=== PATIENT | female | born 1985 | race Caucasian/White ===

== ENCOUNTER → 2017-07-18 | Outpatient (CLI) | payer OTHER ==
--- NOTE | 2017-07-19 06:59 | US ---
EXAMINATION TYPE: US pelvic complete DATE OF EXAM: 07/18/2017 COMPARISON: NONE CLINICAL HISTORY: R19.09 INTRA ABD AND PELVIC SWELLING. 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 Transabdominal sonographic images of the pelvis were acquired. Transvaginal sonographi c images were medically necessary to better assess the following anatomy: ovaries Date of LMP: 06/26/2017 EXAM MEASUREMENTS: Uterus: 7.8 x 3.9 x 4.8 cm Endometrial Stripe: 0.8 cm Right Ovary: not seen Left Ovary: 2.4 x 1.7 x 1.8 cm 1. Uterus: anteverted, heterogeneous 2. Endometrium: wnl for patient's LMP 3. Right Ovary: not seen due to overlying bowel gas 4. Left Ovary: appears wnl at this time 5. Bilateral Adnexa: wnl 6. Posterior cul-de-sac: wnl Left ovary appears within normal limits on current study. Right ovary is not clearly identified. IMPRESSION: As above. If clinical concern for ovarian mass or neoplasm remains present further invest igation with MRI or CT would be advised.
== END | disposition home or self-care (01) ==
LOC: RADUSWWP 15:31
PROVIDERS: ATTEND Family Medicine
DX: R19.09 Other intra-abdominal and pelvic swelling, mass and lump (principal)
CPT/HCPCS: 76830; 76856

== ENCOUNTER → 2017-08-08 | Outpatient (CLI) | payer OTHER ==
--- NOTE | 2017-08-08 17:03 | CT ---
EXAMINATION TYPE: CT pelvis w con DATE OF EXAM: 08/08/2017 COMPARISON: Pelvic ultrasound 07/18/2017 HISTORY: Patient has no complaints at time of service. Follow up study for known teratoma. CT DLP: 1035.5 mGycm Automated exposure control for dose reduction was used. TECHNIQUE: Helical acquisition of images from the lung bases through the pelvis have been completed. CONTRAST: Performed with Oral Contrast and with IV Contrast, patient injected with 100 mL of Isovue 300. FINDINGS: LUNG BASES: Not included AORTA: Normal in its visualized portion, duplicated inferior vena cava is noted. LIVER/GB: Not excluded PANCREAS: Partially visualized SPLEEN: Not seen ADRENALS: Not included on the exam KIDNEYS: No significant abnormality is seen. REPRODUCTIVE ORGANS: There is a mixed density mass associated with the right ovary measuring 2.8 cm a nd shows fat density as well as possible bone density. There is smooth margins and, associated soft t issue is present. Left ovary and uterus are unremarkable. BOWEL: No significant abnormality is seen. FREE AIR: No Free Air visible. ASCITES: None visible. PELVIC ADENOPATHY: None visualized. RETROPERITONEAL ADENOPATHY: No Retroperitoneal Adenopathy visible. URINARY BLADDER: No significant abnormality is seen. OSSEOUS STRUCTURES: Sclerosis present at the sacroiliac joints likely due to stress changes. IMPRESSION: DERMOID TUMOR, CONSIDER [facility] [employer]OPMENT CONSULT
== END ==
LOC: RADCTMAIN 13:59
PROVIDERS: ATTEND Family Medicine
DX: D27.0 Benign neoplasm of right ovary (principal); R19.09 Other intra-abdominal and pelvic swelling, mass and lump; O28.3 Abnormal ultrasonic finding on antenatal screening of mother
CPT/HCPCS: 72193; Q9967

== ENCOUNTER → 2017-10-10 | Outpatient (CLI) | payer OTHER ==
--- NOTE | 2017-10-10 15:36 | US ---
EXAMINATION TYPE: Transabdominal DATE OF EXAM: 08/21/17 COMPARISON: NONE CLINICAL HISTORY: Z36 confirm dates, EXAM PERFORMED: Transabdominal (TA) EXAM MEASUREMENTS: GESTATIONAL AGE / DATING Physician Established: Not yet established Dates by LMP: (11 weeks/0 days) EDC: 05/01/2018 Dates by First Scan: No previous; this is first scan Dates by Current Scan for: (11 weeks/2 days) EDC: 04/29/2018 MATERNAL ANATOMY Uterus: 12.0 x 7.2 x 5.0cm Right Ovary: not seen Left Ovary: not seen Post CDS / Adnexa: wnl Presence of free fluid: no Presence of corpus luteal cyst: not seen Presence of subchorionic bleed: not seen GESTATION / SURVEY CRL: 4.5cm (11 weeks/2 days) Yolk Sac (normal less than 6mm): not seen Heart Rate: 164 bpm Rhythm: Normal IUP: Viable IUP Date of LMP: 07/25/2017 Beta HcG (if available): NA IMPRESSION: single, live IUP,11 weeks/2 days, EDC: 04/29/2018, HR 164bpm
[2017-10-10 15:55] LABS: HCT 38.3 % (34.0-46.0); HGB 13.1 gm/dL (11.4-16.0); MCH 29.9 pg (25.0-35.0); MCHC 34.3 g/dL (31.0-37.0); MCV 87.4 fL (80.0-100.0); Platelet Count 319 k/uL (150-450); RBC 4.39 m/uL (3.80-5.40); RDW 13.4 % (11.5-15.5); WBC 11.1 k/uL (3.8-10.6)
[2017-10-10 16:13] LABS: ALT 28 U/L (9-52); AST 17 U/L (14-36); Glucose 85 mg/dL (74-99); LDH 389 U/L (313-618); Uric Acid 3.4 mg/dL (3.7-7.4)
[2017-10-11 05:27] LABS: Toxoplasma Antibody (IgG) <3.0 IU/mL (<7.2); Toxoplasma Antibody (IgM) <3.0 AU/mL (<8.0)
== END | disposition home or self-care (01) ==
LOC: RADUSWWP 14:53
PROVIDERS: ATTEND Obstetrics & Gynecology
DX: Z36.89 Encounter for other specified antenatal screening (principal); Z34.81 Encounter for supervision of other normal pregnancy, first trimester; Z3A.11 11 weeks gestation of pregnancy
CPT/HCPCS: 36415; 76801; 82565; 82947; 83615; 84450; 84460; 84550; 85027; 86762; 86777; 86778; 86780; 86850; 86900; 86901; 87340

== ENCOUNTER 2018-04-01 11:42 | Outpatient (CLI) | payer OTHER ==
[2018-04-01 12:45] LABS: Appearance,Urine Cloudy (Clear); Bilirubin,Urine Negative (Negative); Blood,Urine Negative (Negative); Color,Urine Light Yellow; Glucose,Urine (UA) Negative (Negative); Ketones,Urine Negative (Negative); Leukocyte Esterase,Urine Negative (Negative); Nitrite,Urine Negative (Negative); Protein,Urine Negative (Negative); Specific Gravity,Urine 1.006 (1.001-1.035); Urobilinogen,Urine <2.0 mg/dL (<2.0)
[2018-04-01 12:46] LABS: Bacteria,Urine Many /hpf; RBC,Urine 1 /hpf (0-5); Squamous Epithelial Cell,Urine 4 /hpf (0-4); Transitional Epi Cells,Urine <1 /hpf (0-1); WBC,Urine 13 /hpf (0-5)
[2018-04-01 13:07] LABS: Anisocytosis Slight; Basophils % (A) 0 %; Eosinophils # (A) 0.1 k/uL (0-0.7); Eosinophils % (A) 2 %; HCT 31.6 % (34.0-46.0); Hypochromasia Moderate; Lymphocytes # (A) 1.2 k/uL (1.0-4.8); Lymphocytes % (A) 15 %; MCH 26.8 pg (25.0-35.0); MCHC 31.8 g/dL (31.0-37.0); MCV 84.3 fL (80.0-100.0); Mean Platelet Volume 7.8; Monocytes # (A) 0.3 k/uL (0-1.0); Monocytes % (A) 4 %; Neutrophils % (A) 76 %; Platelet Count 314 k/uL (150-450); RBC 3.75 m/uL (3.80-5.40); RDW 16.1 % (11.5-15.5); WBC 7.8 k/uL (3.8-10.6)
[2018-04-01 13:08] LABS: ALT 18 U/L (9-52); AST 16 U/L (14-36); LDH 428 U/L (313-618); Uric Acid 5.2 mg/dL (3.7-7.4)
[2018-04-01 17:12] VITALS: BP 125/65; PULSE 105; RESP 16; TEMP 97.8
--- NOTE | 2018-04-08 16:33 | P.MSEPDOC ---
Presenting Problems - Arrival Data Date of Arrival on Unit: 04/01/18 Time of Arrival on Unit: 11:42 Mode of Transport: Ambulatory - Complaint OB-Reason for Admission/Chief Complaint: Headache, Elevated Blood Pressure Comment: pt has chronic htn medicated prior to but bp elevated in office today. so she was sent over for labs and observation presented with order Medical History - Information : 3 Para: 0 Term: 0 Abortions: Spontaneous or Elective: 2 - Gestational Age Gestational Age by FRANCHESKA (wks/days): 35 Weeks and 5 Days - History Complications: Chronic HTN Review of Systems - Review of Systems Constitutional: No problems Breast: No problems ENT: No problems Cardiovascular: No problems Respiratory: No problems Gastrointestinal: No problems Genitourinary: No problems Musculoskeletal: No problems Neurological: No problems Skin: No problems Comment: multiple b/ps highest 133 /90 mmHg, 127 /71 mmHg, 125 /65 mmHg Vital Signs - Temperature Temperature: 97.8 F Temperature Source: Oral - Pulse Right Pulse Rate: 105 Pulse Assessment Method: Automatic Cuff - Respirations Respiratory Rate: 16 Oxygen Delivery Method: Room Air O2 Sat by Pulse Oximetry: 99 - Blood Pressure Right Arm Blood Pressure: 125/65 Blood Pressure Mean: 85 Blood Pressure Source: Automatic Cuff Medical Screen Scoring (Pre) - Cervical Exam Dilation: Exam Deferred Effacement: Exam Deferred - Uterine Contractions Frequency: N/A Duration: N/A Intensity: N/A - Maternal Vital Signs Maternal Temperature: N/A Maternal Blood Pressure: N/A Signs of Preeclampsia: Headache = 1, 3+ edema of dependent extremities = 2 Maternal Respirations: N/A - Pain Assessment Pain Scale Used: Numeric (1 - 10) Pain Intensity: 0 - Assessment Baseline FHR: 125 Heart Rate - NICHD Category: Category I (Normal) = 0 NST: Reactive Station: N/A - Total Score Total Score (Pre): 3 - Level of Risk Level of Risk: Low (0-5) Physician Notification (Pre) - Physician Notified Physician Notified Date: 04/01/18 Physician Notified Time: 11:42 Physician/Practitioner Notifed:: Dr Gonzalez New Order Received: Yes (came from office with orders) - Notification Comment Comment: 1350 labs reviewed and reported to Dr Gonzalez. order for discharge received. Pt to. remain off work. pt to follow up at Dr Gonzalez"s office Sunday am for BP check and. NST. To keep legs elevated and try to stay off her feet as much as possible Disposition - Disposition OB Disposition: Discharge to home Discharge Date: 04/01/18 Discharge Time: 14:10 I agree with the RN Medical Screening Exam: Yes Physician's MSE Comment: Pt to follow up in office in 2-3 days Risk & Benefit of care provided described in d/c instruction: Yes Diagnosis: UNSPECIFIED MATERNAL HYPERTENSION, THIRD TRIMESTER
== END 2018-04-01 14:10 | disposition home or self-care (01) ==
LOC: FBPOP 11:42
PROVIDERS: ATTEND Obstetrics & Gynecology
DX: O16.3 Unspecified maternal hypertension, third trimester (principal); Z3A.35 35 weeks gestation of pregnancy
CPT/HCPCS: 59025; 81001; 82565; 82570; 83615; 84156; 84450; 84460; 84550; 85025